=== PATIENT | female | born 1945 | race Two or more races ===

== ENCOUNTER 2017-12-30 12:06 | Emergency (ER) | payer MEDICARE, MEDICAID ==
[~2017-12-30] VITALS: Ht 160 cm; Wt 99.8 kg
[~2017-12-30 12:06] MED LIST: ALBU18HF2 INH; ASPI-611 PO; CEPH500C5 PO; CETI10TA18 PO; GABA600T2 PO; HUM7525 SQ; HYDR-3972 PO; LANTUS SUBCUT; LEVO150T8 PO; LISI10TA4 PO
[2017-12-30 13:18] LABS: CLARITY,URINE Clear (Clear); COLOR,URINE Yellow (Yellow); GLUCOSE, URINE Negative (Neg); KETONES,URINE Negative (Neg); LEUKOCYTE ESTERASE ,URINE Trace (Neg); NITRITES, URINE Positive (Neg); OCCULT BLOOD,URINE Trace (Neg); PH,URINE 7.5 (4.8-8.0); PROTEIN,URINE Negative (Neg)
[2017-12-30 13:22] LABS: UA COLLECTION TYPE CLN CATCH MIDSTREAM
[2017-12-30] MEDS ORDERED: BACDS PO (13:35)
[2017-12-30 13:43] LABS: BACTERIA,URINE 2+ /HPF (Neg); MUCUS STRANDS FEW /LPF (Neg); SQUAMOUS EPITHELIAL CELL,UR FEW /LPF (FEW)
[2017-12-30 13:44] LABS: RBC,URINE 0-2 /HPF (0-2)
[2017-12-30 13:50] VITALS: BP 139/70
== END 2017-12-30 13:53 | disposition home or self-care (01) ==
LOC: ER 12:07
DX: N39.0 Urinary tract infection, site not specified (principal); E11.9 Type 2 diabetes mellitus without complications; G89.29 Other chronic pain; M19.90 Unspecified osteoarthritis, unspecified site; Z79.82 Long term (current) use of aspirin; Z79.899 Other long term (current) drug therapy
CPT/HCPCS: 81001; 87077; 87088; 87186; 99284

== ENCOUNTER 2018-02-02 06:09 | Inpatient (IN) | payer MEDICARE, MEDICAID ==
[2018-01-20 14:15] LABS: BASOPHILS % (AUTO) 0.3 % (0-1); EOSINOPHILS # (AUTO) 0.1 X10'3 (0-0.9); EOSINOPHILS % (AUTO) 0.7 % (0-6); LYMPHOCYTES % (AUTO) 28.1 % (21-51); MEAN CORPUSCULAR HEMOGLOBIN 35.7 PG (27.0-31.0); MEAN CORPUSCULAR VOLUME 104.8 FL (78-98); MEAN PLATELET VOLUME 9.5 FL (7.4-10.4); MONOCYTES # (AUTO) 0.6 X10'3 (0-0.9); MONOCYTES % (AUTO) 8.9 % (2-12); NEUTROPHILS # (AUTO) 4.4 X10'3 (1.8-7.7); PRE OP HEMATOCRIT 38.2 % (35.0-45.0); PRE OP PLATELET COUNT 138 X10'3 (140-440); RED BLOOD COUNT 3.65 X10'6 (4.20-5.60); RED CELL DISTRIBUTION WIDTH 16.4 % (11.5-14.5)
[2018-01-20 14:25] LABS: HEMOGLOBIN A1C 7.3 % (4.5-6.2)
[2018-01-20 14:31] LABS: ALBUMIN 3.1 G/DL (3.4-5.0); ALBUMIN/GLOBULIN RATIO 0.8 (1.1-1.5); ALKALINE PHOSPHATASE 246 IU/L (46-116); BLOOD UREA NITROGEN 9 MG/DL (7-18); CALCIUM 8.6 MG/DL (8.5-10.1); CHLORIDE 103 MMOL/L (99-107); CREATININE 0.82 MG/DL (0.40-0.90); PRE OP ALT 56 U/L (30-65); PRE OP ANION GAP 4 (8-16); PRE OP AST 37 U/L (10-37); PRE OP BILIRUB, TOTAL 0.8 MG/DL (0.0-1.0); PRE OP POTASSIUM 4.3 MMOL/L (3.4-5.1); PRE OP SODIUM 138 MMOL/L (135-145); TOTAL CARBON DIOXIDE 31.4 MMOL/L (24-32); TOTAL PROTEIN 7.2 G/DL (6.4-8.2); eGFR 69 ML/MIN
[2018-01-20 14:32] LABS: PRE OP GLUCOSE 239 MG/DL (70-104)
[~2018-02-02] VITALS: Ht 160 cm; Wt 114.3 kg
[2018-02-02] VITALS (20 sets, daily range): BP systolic 96–163; BP diastolic 51–84
[~2018-02-02 06:09] MED LIST changes: -ASPI-611 PO; -CEPH500C5 PO; +DULO30CA51 PO; +NORMAL SALINE IV ONE; +TRANEXAMIC ACID IV ONE; +VANCOMYCIN INJ 1000 MG in NORMAL SALINE 250ml IV.SOLN IV ONE; +ceFAZolin inj. 2,000 MG in dextrose 5%-water 100 ML IV ONE; +famotidine 20mg tablet PO ONE; +ringers solution, lacted 1,000 ML IV SCH
[2018-02-02] MEDS ORDERED: LIDOcaine 1% (10mg/ml) 2ml vial ONE ×2 (06:31→08:11)
[2018-02-02] MEDS ORDERED: ketorolac trometh. 30mg/ml inj. ONE (06:46)
[2018-02-02] MEDS ORDERED: BUPIVAcaine/PF 2.5 mg/ml (0.25%) 30ml vial ONE (06:47)
[2018-02-02] MEDS ORDERED: vancomycin 1,000mg inj ONE (06:52)
[2018-02-02] MEDS ORDERED: TRANEXAMIC ACID IV ONE (07:30)
[2018-02-02] MEDS ORDERED: NORMAL SALINE IV ONE (07:30)
[2018-02-02] MEDS ORDERED: cloNIDine hcl/PF 100mcg/ml inj ONE (09:02)
[2018-02-02] MEDS ORDERED: tetracaine 1% (10mg/ml) pres. free inj. ONE (09:02)
[2018-02-02] MEDS ORDERED: MIDAZolam 5mg/5ml vial ONE (09:05)
[2018-02-02] MEDS ORDERED: fentaNYL/PF 50MCG/1 ML 2ML syringe ONE (09:05)
[2018-02-02] MEDS ORDERED: morphine /PF 1mg/ml 10ml inj. ONE (09:19)
[2018-02-02] MEDS ORDERED: propofol inj 20 ML IV ONE ×2 (09:45→11:32)
[2018-02-02] MEDS ORDERED: diphenhydrAMINE 50 mg/ml inj ONE (09:45)
[2018-02-02] MEDS ORDERED: LIDOcaine 1%/PF (10mg/ml) 5ml vial ONE (09:45)
[2018-02-02] MEDS ORDERED: dexamethasone sod phosphate 4mg/ml inj. ONE (09:51)
[2018-02-02] MEDS ORDERED: ROPIVAcaine 0.5% (5mg/ml) 30ml vial ONE (09:53)
[2018-02-02] MEDS ORDERED: naloxone 2mg/2ml inj 2 MG in normal saline 500ml IV soln 500 ML IV PRN (10:33)
[2018-02-02] MEDS ORDERED: ringers solution, lacted 1,000 ML IV SCH (10:33)
[2018-02-02] MEDS ORDERED: morphine 4 MG/ML inj SYRINge IV PRN (10:35)
[2018-02-02] MEDS ORDERED: diphenhydrAMINE 50 mg/ml inj IV PRN (10:35)
[2018-02-02] MEDS ORDERED: ondansetron/PF 4mg/2ml inj IV PRN ×3 (10:35→12:15)
[2018-02-02] MEDS ORDERED: HYDROmorphone inj. 0.5 MG/0.5 ML DISP.SYRIN IV PRN ×4 (10:35→12:15)
[2018-02-02] MEDS ORDERED: diphenhydrAMINE 25mg capsule PO PRN ×2 (12:15)
[2018-02-02] MEDS ORDERED: bisacodyl 10mg suppository rectal RC PRN (12:15)
[2018-02-02] MEDS ORDERED: magnesium hydroxide 30ml (MOM) UD suspension PO PRN (12:15)
[2018-02-02] MEDS ORDERED: acetaminophen 325mg tablet PO PRN (12:15)
[2018-02-02] MEDS ORDERED: dextrose 50%-water 50ml dispensing syringe IV ONE (13:05)
[2018-02-02] MEDS: acetaminophen 325mg tablet PO SCH ×2 (14:17→20:11)
[2018-02-02] MEDS: gabapentin 300mg capsule PO SCH ×2 (14:17→20:11)
[2018-02-02] MEDS ORDERED: tranexamic acid inj. 1,200 MG in normal saline 100ml IV soln 100 ML IV ONE (15:00)
[2018-02-02] MEDS: ceFAZolin inj. 1,000 MG in normal saline 100ml IV soln 100 ML IV SCH ×2 (16:52→23:40)
[2018-02-02] MEDS: potassium cl 20mEq in 1/2 NS 1,000 ML IV SCH (16:52)
[2018-02-02] MEDS ORDERED: non-formulary drug (Albuterol Sulfate (Ventolin Hfa) 2 PUFFS) INH SCH (17:20)
[2018-02-02] MEDS ORDERED: albuterol 2.5 MG/3 ML nebule NEB PRN (17:25)
[2018-02-02] MEDS: oxyCODONE IR 5mg (immed. release) tablet PO PRN (17:50)
[2018-02-02] MEDS: insulin glargine (Lantus) pen - multi-dose SQ SCH (18:55)
[2018-02-02] MEDS ORDERED: vancomycin/NS 1 GM ADD-VANTAGE 250 ML IV SCH (19:00)
[2018-02-02] MEDS: sennosides 8.6mg tablet PO SCH (20:10)
[2018-02-02] MEDS: celeCOXIB 100mg capsule PO SCH (20:11)
[2018-02-02] MEDS ORDERED: MESSAGE TO PHARMACY PO ONE (20:55)
[2018-02-02] MEDS ORDERED: dextrose 50%-water 50ml dispensing syringe IV PRN ×2 (20:55)
[2018-02-02] MEDS ORDERED: dextrose ORAL solution 15 GM/59 ML bottle PO PRN ×2 (20:55)
[2018-02-02] MEDS ORDERED: glucagon, human recombinant 1mg kit SUBCUT PRN (20:55)
[2018-02-02] MEDS: insulin Lispro (HumaLOG) vial - multi-dose SQ SCH (21:25)
[2018-02-03] MEDS ORDERED: gabapentin 300mg capsule PO SCH
[2018-02-03] MEDS ORDERED: non-formulary drug (Gabapentin 1 TAB) PO SCH
[2018-02-03] MEDS: oxyCODONE IR 5mg (immed. release) tablet PO PRN ×4 (02:08→21:35)
[2018-02-03] MEDS: acetaminophen 325mg tablet PO SCH ×4 (02:08→21:33)
[2018-02-03] MEDS: potassium cl 20mEq in 1/2 NS 1,000 ML IV SCH ×4 (02:27→21:57)
[2018-02-03 02:31] VITALS: BP 112/56
[2018-02-03 05:56] LABS: BASOPHILS % (AUTO) 0.4 % (0-1); EOSINOPHILS % (AUTO) 0 % (0-6); HEMATOCRIT 31.2 % (35.0-45.0); HEMOGLOBIN 10.9 g/dl (12.0-16.0); LYMPHOCYTES # (AUTO) 1.7 X10'3 (1.1-4.8); LYMPHOCYTES % (AUTO) 19.8 % (21-51); MEAN CORPUSCULAR HEMOGLOBIN 36.6 PG (27.0-31.0); MEAN CORPUSCULAR HGB CONC 34.8 % (33.0-36.5); MEAN PLATELET VOLUME 10.1 FL (7.4-10.4); MONOCYTES # (AUTO) 1.2 X10'3 (0-0.9); NEUTROPHILS # (AUTO) 5.7 X10'3 (1.8-7.7); NEUTROPHILS % (AUTO) 65.8 % (42-75); PLATELET COUNT 124 X10'3 (140-440); RED BLOOD COUNT 2.97 X10'6 (4.20-5.60); RED CELL DISTRIBUTION WIDTH 14.6 % (11.5-14.5); WHITE BLOOD COUNT 8.6 X10'3 (4.5-11.0)
[2018-02-03 06:00] VITALS: BP 92/51
[2018-02-03 06:32] LABS: ANION GAP 3 (8-16); CHLORIDE 105 MMOL/L (99-107); POTASSIUM 4.6 MMOL/L (3.5-5.1); SODIUM 139 MMOL/L (135-145); TOTAL CARBON DIOXIDE 31.4 MMOL/L (24-32)
[2018-02-03] MEDS ORDERED: non-formulary drug (Levothyroxine Sodium 1 TAB) PO SCH (08:00)
[2018-02-03] MEDS ORDERED: non-formulary drug (Cetirizine HCl 1 TAB) PO SCH (08:00)
[2018-02-03] MEDS: insulin glargine (Lantus) pen - multi-dose SQ SCH ×2 (08:35→21:39)
[2018-02-03] MEDS: insulin Lispro (HumaLOG) vial - multi-dose SQ SCH ×2 (08:39→14:51)
[2018-02-03] MEDS: cetirizine 10mg tablet PO SCH (08:41)
[2018-02-03] MEDS: lisinopril 10 MG tablet PO SCH (08:42)
[2018-02-03] MEDS: duloxetine 30mg CAPSULE.DR PO SCH (08:42)
[2018-02-03] MEDS: levoTHYROXINE 75mcg tablet PO SCH (08:42)
[2018-02-03] MEDS: celeCOXIB 100mg capsule PO SCH ×2 (08:43→21:33)
[2018-02-03] MEDS: aspirin 325mg tablet PO SCH (08:43)
[2018-02-03] MEDS: gabapentin 300mg capsule PO SCH ×3 (08:44→21:32)
[2018-02-03 10:00] VITALS: BP 112/58
[2018-02-03 14:00] VITALS: BP 117/62
[2018-02-03 18:00] VITALS: BP 157/67
[2018-02-03] MEDS: sennosides 8.6mg tablet PO SCH (21:00)
[2018-02-03 22:00] VITALS: BP 114/43
[2018-02-04] MEDS: acetaminophen 325mg tablet PO SCH ×2 (02:00→07:56)
[2018-02-04] MEDS: oxyCODONE IR 5mg (immed. release) tablet PO PRN ×3 (05:38→20:32)
[2018-02-04 06:00] VITALS: BP 117/48
[2018-02-04 06:06] LABS: BASOPHILS % (AUTO) 0.3 % (0-1); EOSINOPHILS # (AUTO) 0.1 X10'3 (0-0.9); EOSINOPHILS % (AUTO) 1.4 % (0-6); HEMATOCRIT 31.4 % (35.0-45.0); HEMOGLOBIN 10.9 g/dl (12.0-16.0); LYMPHOCYTES # (AUTO) 2.7 X10'3 (1.1-4.8); MEAN CORPUSCULAR HEMOGLOBIN 36.6 PG (27.0-31.0); MEAN CORPUSCULAR HGB CONC 34.6 % (33.0-36.5); MEAN CORPUSCULAR VOLUME 105.5 FL (78-98); MEAN PLATELET VOLUME 10.4 FL (7.4-10.4); MONOCYTES # (AUTO) 1.4 X10'3 (0-0.9); MONOCYTES % (AUTO) 14.2 % (2-12); NEUTROPHILS # (AUTO) 5.5 X10'3 (1.8-7.7); NEUTROPHILS % (AUTO) 56.1 % (42-75); PLATELET COUNT 120 X10'3 (140-440); RED BLOOD COUNT 2.98 X10'6 (4.20-5.60); RED CELL DISTRIBUTION WIDTH 15.4 % (11.5-14.5); WHITE BLOOD COUNT 9.8 X10'3 (4.5-11.0)
[2018-02-04] MEDS: celeCOXIB 100mg capsule PO SCH ×2 (07:55→20:32)
[2018-02-04] MEDS: gabapentin 300mg capsule PO SCH ×3 (07:55→20:32)
[2018-02-04] MEDS: cetirizine 10mg tablet PO SCH (07:55)
[2018-02-04] MEDS: levoTHYROXINE 75mcg tablet PO SCH (07:55)
[2018-02-04] MEDS: aspirin 325mg tablet PO SCH (07:55)
[2018-02-04] MEDS: lisinopril 10 MG tablet PO SCH (07:56)
[2018-02-04] MEDS: duloxetine 30mg CAPSULE.DR PO SCH (07:56)
[2018-02-04] MEDS: insulin glargine (Lantus) pen - multi-dose SQ SCH ×2 (09:28→20:36)
[2018-02-04 10:00] VITALS: BP 114/63
[2018-02-04] MEDS: insulin Lispro (HumaLOG) vial - multi-dose SQ SCH ×3 (11:32→19:25)
[2018-02-04] MEDS ORDERED: acetaminophen 325mg tablet PO PRN (12:15)
[2018-02-04 18:00] VITALS: BP 110/51
[2018-02-04] MEDS: sennosides 8.6mg tablet PO SCH (20:46)
[2018-02-04 22:00] VITALS: BP 110/61
[2018-02-05] MEDS: oxyCODONE IR 5mg (immed. release) tablet PO PRN ×2 (04:49→09:48)
[2018-02-05 06:00] VITALS: BP 125/55
[2018-02-05 06:43] LABS: BASOPHILS % (AUTO) 0.2 % (0-1); EOSINOPHILS # (AUTO) 0.2 X10'3 (0-0.9); EOSINOPHILS % (AUTO) 1.8 % (0-6); HEMATOCRIT 32.3 % (35.0-45.0); HEMOGLOBIN 11.2 g/dl (12.0-16.0); LYMPHOCYTES # (AUTO) 2.9 X10'3 (1.1-4.8); LYMPHOCYTES % (AUTO) 31.9 % (21-51); MEAN CORPUSCULAR HEMOGLOBIN 36.4 PG (27.0-31.0); MEAN CORPUSCULAR HGB CONC 34.7 % (33.0-36.5); MEAN CORPUSCULAR VOLUME 104.9 FL (78-98); MEAN PLATELET VOLUME 9.9 FL (7.4-10.4); MONOCYTES # (AUTO) 1.1 X10'3 (0-0.9); MONOCYTES % (AUTO) 12.1 % (2-12); NEUTROPHILS # (AUTO) 4.9 X10'3 (1.8-7.7); PLATELET COUNT 137 X10'3 (140-440); RED BLOOD COUNT 3.08 X10'6 (4.20-5.60); RED CELL DISTRIBUTION WIDTH 15.5 % (11.5-14.5); WHITE BLOOD COUNT 9.1 X10'3 (4.5-11.0)
[2018-02-05] MEDS: aspirin 325mg tablet PO SCH (08:07)
[2018-02-05] MEDS: levoTHYROXINE 75mcg tablet PO SCH (08:07)
[2018-02-05] MEDS: celeCOXIB 100mg capsule PO SCH (08:07)
[2018-02-05] MEDS: duloxetine 30mg CAPSULE.DR PO SCH (08:07)
[2018-02-05] MEDS: cetirizine 10mg tablet PO SCH (08:07)
[2018-02-05] MEDS: gabapentin 300mg capsule PO SCH (08:07)
[2018-02-05] MEDS: lisinopril 10 MG tablet PO SCH (08:08)
[2018-02-05] MEDS: insulin glargine (Lantus) pen - multi-dose SQ SCH (09:52)
[2018-02-05 10:00] VITALS: BP 116/57
[2018-02-05] MEDS: insulin Lispro (HumaLOG) vial - multi-dose SQ SCH (11:27)
== END 2018-02-05 12:35 | DRG 470 ==
LOC: PAS IN 06:09 → EDSTATUS 09:00 → ORTHO 4S 13:40
PROVIDERS: ADMIT Orthopaedic Surgery; ATTEND Orthopaedic Surgery
PROC: 3E0T3BZ Introduction of Anesthetic Agent into Peripheral Nerves and Plexi, Percutaneous Approach (ICD-10-PCS; 2018-02-02)
PROC: 8E0YXBZ Computer Assisted Procedure of Lower Extremity (ICD-10-PCS; 2018-02-02)
PROC: 8E0YXCZ Robotic Assisted Procedure of Lower Extremity (ICD-10-PCS; 2018-02-02)
PROC: 0SRD0J9 Replacement of Left Knee Joint with Synthetic Substitute, Cemented, Open Approach (ICD-10-PCS; principal; 2018-02-02 09:08)
DX: M17.12 Unilateral primary osteoarthritis, left knee (principal); D62 Acute posthemorrhagic anemia; E11.9 Type 2 diabetes mellitus without complications; Z68.41 Body mass index [BMI] 40.0-44.9, adult; G47.30 Sleep apnea, unspecified; M25.262 Flail joint, left knee; E03.9 Hypothyroidism, unspecified; I10 Essential (primary) hypertension; K21.9 Gastro-esophageal reflux disease without esophagitis; G89.29 Other chronic pain; M54.9 Dorsalgia, unspecified; F32.9 Major depressive disorder, single episode, unspecified; E66.9 Obesity, unspecified; Z79.899 Other long term (current) drug therapy; Z79.4 Long term (current) use of insulin
CPT/HCPCS: 36415; 80051; 80053; 82948; 83036; 85025; 87070; 94760; 97110; 97116; 97162; 97530; A6455; A7000; C1713; C1758; C1776; J0690; J0735; J1100; J1170; J1200; J1815; J1885; J2001; J2250; J2274; J2704; J2795; J3010; J3370; J3490; J7030; J7060; J7120; Q0163

== ENCOUNTER 2018-04-09 11:15 | Emergency (ER) | payer MEDICARE, MEDICAID ==
[~2018-04-09] VITALS: Ht 160 cm; Wt 100.2 kg
[~2018-04-09 11:15] MED LIST changes: -NORMAL SALINE IV ONE; -TRANEXAMIC ACID IV ONE; -VANCOMYCIN INJ 1000 MG in NORMAL SALINE 250ml IV.SOLN IV ONE; -ceFAZolin inj. 2,000 MG in dextrose 5%-water 100 ML IV ONE; -famotidine 20mg tablet PO ONE; -ringers solution, lacted 1,000 ML IV SCH
[2018-04-09] MEDS ORDERED: ketorolac trometh inj. 60 MG/2 ML VIAL IM STA (11:47)
[2018-04-09] MEDS ORDERED: ketorolac trometh. 30mg/ml inj. IM STA (11:50)
[2018-04-09 12:14] VITALS: BP 129/85
== END 2018-04-09 12:15 | disposition home or self-care (01) ==
LOC: ER 11:15
DX: M25.552 Pain in left hip (principal); E11.9 Type 2 diabetes mellitus without complications; G89.29 Other chronic pain; M19.90 Unspecified osteoarthritis, unspecified site; Z79.4 Long term (current) use of insulin; Z79.899 Other long term (current) drug therapy
CPT/HCPCS: 96372; 99283; J1885

== ENCOUNTER 2022-01-17 10:38 | Day surgery (SDC) | payer OTHER, MEDICAID ==
[~2022-01-17] VITALS: Ht 165.1 cm; Wt 122.5 kg
[~2022-01-17 10:38] MED LIST changes: +ACET-2119 PO; -ALBU18HF2 INH; +AMIO200T61 PO; +BISA10SU60 RC; +CELE-193 PO; -CETI10TA18 PO; +CETI10TA19 PO; +DULO-31 PO; -DULO30CA51 PO; +FERR325T32 PO; -GABA600T2 PO; -HUM7525 SQ; -HYDR-3972 PO; +INSU100I31 SQ; +INSU100V43 SQ; -LANTUS SUBCUT; -LEVO150T8 PO; +LEVO75TA PO; +LISI10TA27 PO; -LISI10TA4 PO; +MAGN400O6 PO; +MULT-620 PO; +RIVA20TA PO; +SULF1TAB49 PO; +TRAM50TA2 PO
[2022-01-17 10:55] VITALS: BP 177/53
[2022-01-17] MEDS ORDERED: normal saline 1000ml 1,000 ML IV PRN (11:05)
[2022-01-17] MEDS ORDERED: MEMA10TA56 PO (11:53)
[2022-01-17] MEDS ORDERED: ASPI-1265 PO (11:53)
[2022-01-17] MEDS ORDERED: ALBU17AE26 (11:53)
[2022-01-17] MEDS ORDERED: ESCI20TA39 PO (11:53)
[2022-01-17] MEDS ORDERED: MOME45CR3 (11:53)
[2022-01-17] MEDS ORDERED: LEVO175T7 PO (11:53)
[2022-01-17] MEDS ORDERED: GABA600T13 PO (11:53)
[2022-01-17] MEDS ORDERED: ATRNS BOTHNARES (11:53)
[2022-01-17] MEDS ORDERED: DICL100G30 TOP (11:53)
[2022-01-17] MEDS ORDERED: HYDR-3972 PO (11:53)
[2022-01-17] MEDS ORDERED: FURO-149 PO (11:54)
[2022-01-17] MEDS ORDERED: POTA-192 PO (11:55)
[2022-01-17] MEDS ORDERED: THIA100T70 PO (11:56)
[2022-01-17] MEDS ORDERED: heparin sodium, porcine/PF 100unit/ml 5ML syringe ONE (13:31)
[2022-01-17] MEDS ORDERED: LIDOcaine 1% (10mg/ml)w/preservative inj. 20ml MDV ONE ×2 (13:31→14:59)
[2022-01-17] MEDS ORDERED: midazolam 1 mg/ML 2ml injection ONE ×2 (13:31→15:12)
[2022-01-17] MEDS ORDERED: fentaNYL/PF 50MCG/1 ML 2ML syringe ONE ×2 (13:31→14:59)
[2022-01-17 15:51] VITALS: BP 137/50
[2022-01-17 16:00] VITALS: BP 129/70
[2022-01-17 16:15] VITALS: BP 129/75
[2022-01-17 16:30] VITALS: BP 116/56
[2022-01-17 16:45] VITALS: BP 104/52
== END 2022-01-17 17:00 | disposition home or self-care (01) ==
LOC: SSTAY O 10:38
PROVIDERS: ATTEND Radiology Vascular & Interventional Radiology
DX: C22.0 Liver cell carcinoma (principal); K74.60 Unspecified cirrhosis of liver; E66.9 Obesity, unspecified; Z68.41 Body mass index [BMI] 40.0-44.9, adult; Z79.899 Other long term (current) drug therapy; Z79.82 Long term (current) use of aspirin
CPT/HCPCS: 36561; 76937; 77001; 82948; 99152; 99153; C1769; C1788; C1894; J1642; J2250; J3010; J3490

== ENCOUNTER 2022-05-06 11:46 | Inpatient (IN) | payer OTHER, MEDICAID ==
[~2022-05-06] VITALS: Ht 162.6 cm; Wt 107.8 kg
[~2022-05-06 11:46] MED LIST changes: -ACET-2119 PO; +ALBU17AE26; -AMIO200T61 PO; +ASPI-1265 PO; +ATRNS BOTHNARES; -BISA10SU60 RC; -CELE-193 PO; -CETI10TA19 PO; +DICL100G30 TOP; -DULO-31 PO; +ESCI20TA39 PO; +FURO-149 PO; +GABA600T13 PO; +HYDR-3972 PO; +LEVO175T7 PO; -LEVO75TA PO; -LISI10TA27 PO; -MAGN400O6 PO; +MEMA10TA56 PO; +MOME45CR3 TP; -MULT-620 PO; +POTA-192 PO; -RIVA20TA PO; -SULF1TAB49 PO; +THIA100T70 PO; -TRAM50TA2 PO; +lactulose 20gm/30ml cup PO ONE
--- NOTE | 2022-05-06 15:29 | NUR ---
RECORDS REQUEST FAXED TO [facility].
[2022-05-06 16:38] LABS: BASOPHILS % (AUTO) 1.1 % (0-1); EOSINOPHILS # (AUTO) 0.4 X10'3 (0-0.9); EOSINOPHILS % (AUTO) 9.2 % (0-6); HEMATOCRIT 38.5 % (35.0-45.0); HEMOGLOBIN 13.3 g/dl (12.0-16.0); LYMPHOCYTES # (AUTO) 1.9 X10'3 (1.1-4.8); LYMPHOCYTES % (AUTO) 44.9 % (21-51); MEAN CORPUSCULAR HGB CONC 34.4 g/dL (33.0-36.5); MEAN CORPUSCULAR VOLUME 104.6 FL (78-98); MEAN PLATELET VOLUME 9.2 FL (7.4-10.4); MONOCYTES # (AUTO) 0.5 X10'3 (0-0.9); MONOCYTES % (AUTO) 11.9 % (2-12); NEUTROPHILS # (AUTO) 1.4 X10'3 (1.8-7.7); NEUTROPHILS % (AUTO) 32.9 % (42-75); PLATELET COUNT 82 X10'3 (140-440); RED BLOOD COUNT 3.68 X10'6 (4.20-5.60); RED CELL DISTRIBUTION WIDTH 17.8 % (11.5-14.5); WHITE BLOOD COUNT 4.2 X10'3 (4.5-11.0)
[2022-05-06 16:57] LABS: LACTIC SEPSIS 1.9 MMOL/L (0.4-2.0)
[2022-05-06 17:07] LABS: ALANINE AMINOTRANSFERASE 76 U/L (12-78); ALBUMIN/GLOBULIN RATIO 0.4 (1.1-1.5); ALKALINE PHOSPHATASE 222 IU/L (46-116); ANION GAP 4 (8-16); ASPARTATE AMINO TRANSFERASE 66 U/L (10-37); BILIRUBIN,TOTAL 3.2 MG/DL (0.1-1.0); BLOOD UREA NITROGEN 10 MG/DL (7-18); BUN/CREATININE RATIO 14.1 (6.6-38.0); CALCIUM 8.2 MG/DL (8.5-10.1); CHLORIDE 103 MMOL/L (99-107); CREATININE 0.71 MG/DL (0.40-0.90); ETHANOL < 0.010 GM/DL (0.0-0.010); GLUCOSE 143 MG/DL (70-104); MAGNESIUM 2.1 MG/DL (1.5-2.4); POTASSIUM 4.3 MMOL/L (3.5-5.1); SODIUM 137 MMOL/L (135-145); TOTAL PROTEIN 7.6 G/DL (6.4-8.2); eGFR 80 ML/MIN
[2022-05-06 17:13] LABS: UA COLLECTION TYPE OTHER
[2022-05-06 17:14] LABS: CLARITY,URINE CLOUDY (Clear); COLOR,URINE YELLOW (Yellow); GLUCOSE, URINE NEGATIVE (Neg); KETONES,URINE TRACE mg/dl (Neg); LEUKOCYTE ESTERASE ,URINE MODERATE (Neg); NITRITES, URINE POSITIVE (Neg); OCCULT BLOOD,URINE LARGE (Neg); PH,URINE 6.5 (4.8-8.0); PROTEIN,URINE TRACE mg/dl (Neg); UROBILINOGEN,URINE >=8.0 E.U/dL (0.2-1.0)
[2022-05-06 17:18] LABS: URINE AMPHETAMINE SCREEN NEGATIVE (Neg); URINE BARBITUATE SCREEN NEGATIVE (Neg); URINE BENZODIAZEPINES SCREEN NEGATIVE (Neg); URINE CANNABINOID SCREEN NEGATIVE (Neg); URINE COCAINE SCREEN NEGATIVE (Neg); URINE METHADONE SCREEN NEGATIVE (Neg); URINE OPIATE SCREEN POSITIVE (Neg); URINE PHENCYCLIDINE SCREEN NEGATIVE (Neg)
[2022-05-06 17:20] LABS: BACTERIA,URINE 2+ /HPF (Neg); SQUAMOUS EPITHELIAL CELL,UR MODERATE /LPF (FEW); TRANSITIONAL EPI CELLS,URINE MODERATE /HPF; WBC CLUMPS,URINE MODERATE /HPF (NEGATIVE); WBC,URINE 20-30 /HPF (0-4)
[2022-05-06] MEDS ORDERED: cefepime 2g/NS 100ml ADVANTAGE 100 ML IV SCH (20:00)
[2022-05-06] MEDS ORDERED: temazepam 15mg capsule PO PRN (21:00)
--- NOTE | 2022-05-06 21:04 | NUR ---
CALLED TO REPORT 196/102 BP. NEW ORDERS EXPECTEDD
[2022-05-06] MEDS ORDERED: niCARdipine I.V. 50 MG in normal saline 250ml IV soln 230 ML IV SCH (21:10)
[2022-05-06] MEDS ORDERED: HYDROmorphone inj. 0.5 MG/0.5 ML DISP.SYRIN IV PRN (21:30)
[2022-05-06] MEDS ORDERED: diphenhydrAMINE 25mg capsule PO PRN (21:30)
[2022-05-06] MEDS ORDERED: acetaminophen 325mg tablet PO PRN ×2 (21:30)
[2022-05-06] MEDS ORDERED: magnesium hydroxide 30ml (MOM) UD suspension PO PRN (21:30)
[2022-05-06] MEDS ORDERED: ondansetron 4mg rapidly disintigrating tab PO PRN (21:30)
[2022-05-06] MEDS ORDERED: bisacodyl 10mg suppository rectal RC PRN (21:30)
[2022-05-06] MEDS ORDERED: ondansetron/PF 4mg/2ml inj IV PRN (21:30)
[2022-05-06] MEDS ORDERED: mag hydrox/Alum hydrox/simeth 30ml oral suspension PO PRN (21:30)
[2022-05-06] MEDS ORDERED: HYDROcodone/acetaminophen 5mg/325mg tablet PO PRN (21:30)
[2022-05-06] MEDS ORDERED: acetaminophen 650mg rectal suppository RC PRN (21:30)
[2022-05-06] MEDS ORDERED: diphenhydrAMINE 50 mg/ml inj IV PRN (21:30)
[2022-05-06] MEDS ORDERED: morphine 2 MG/ML inj. syringe IV PRN (21:30)
[2022-05-06] MEDS ORDERED: DEXTROSE 15 GM of carb/4 tabs (each vial/BOTTLE has 4 tablets) PO PRN ×2 (21:35)
[2022-05-06] MEDS ORDERED: MESSAGE TO PHARMACY PO ONE (21:35)
[2022-05-06] MEDS ORDERED: dextrose 50%-water 50ml dispensing syringe IV PRN ×2 (21:35)
[2022-05-06] MEDS ORDERED: glucagon, human recombinant 1mg kit SUBCUT PRN (21:35)
--- NOTE | 2022-05-06 21:48 | NUR ---
PT TO CT
[2022-05-06 21:55] LABS: PHOSPHORUS 4.1 MG/DL (2.3-4.5)
[2022-05-06] MEDS: normal saline 1000ml 1,000 ML IV SCH (22:14)
[2022-05-06] MEDS: niCARDipine-NS 40mg/200ml IVPB 200 ML IV SCH (22:15)
[2022-05-06 23:58] LABS: APTT 42 SECONDS (22-32)
[2022-05-07] VITALS (7 sets, daily range): BP systolic 116–150; BP diastolic 57–84
[2022-05-07] MEDS: lactulose 20gm/30ml cup PO SCH ×4 (03:02→20:24)
[2022-05-07] MEDS: niCARDipine-NS 40mg/200ml IVPB 200 ML IV SCH (05:15)
[2022-05-07 06:04] LABS: EOSINOPHILS # (AUTO) 0.2 X10'3 (0-0.9); EOSINOPHILS % (AUTO) 3.7 % (0-6); HEMATOCRIT 38.1 % (35.0-45.0); HEMOGLOBIN 13.3 g/dl (12.0-16.0); LYMPHOCYTES # (AUTO) 1.3 X10'3 (1.1-4.8); LYMPHOCYTES % (AUTO) 29.6 % (21-51); MEAN CORPUSCULAR HEMOGLOBIN 36.5 PG (27.0-31.0); MEAN CORPUSCULAR VOLUME 104.3 FL (78-98); MEAN PLATELET VOLUME 9.4 FL (7.4-10.4); MONOCYTES # (AUTO) 0.5 X10'3 (0-0.9); MONOCYTES % (AUTO) 11.8 % (2-12); NEUTROPHILS # (AUTO) 2.5 X10'3 (1.8-7.7); NEUTROPHILS % (AUTO) 53.9 % (42-75); PLATELET COUNT 93 X10'3 (140-440); RED BLOOD COUNT 3.66 X10'6 (4.20-5.60); RED CELL DISTRIBUTION WIDTH 17.7 % (11.5-14.5); WHITE BLOOD COUNT 4.6 X10'3 (4.5-11.0)
[2022-05-07 06:20] LABS: ALANINE AMINOTRANSFERASE 72 U/L (12-78); ALBUMIN 2.1 G/DL (3.4-5.0); ALKALINE PHOSPHATASE 211 IU/L (46-116); ANION GAP 7 (8-16); ASPARTATE AMINO TRANSFERASE 72 U/L (10-37); BILIRUBIN,TOTAL 3.8 MG/DL (0.1-1.0); BLOOD UREA NITROGEN 14 MG/DL (7-18); BUN/CREATININE RATIO 15.7 (6.6-38.0); CALCIUM 8.4 MG/DL (8.5-10.1); CHLORIDE 103 MMOL/L (99-107); CREATININE 0.89 MG/DL (0.40-0.90); GLUCOSE 162 MG/DL (70-104); HDL CHOLESTEROL 27 MG/DL (35-60); LDL CHOLESTEROL 66 MG/DL (50-100); POTASSIUM 4.3 MMOL/L (3.5-5.1); SODIUM 137 MMOL/L (135-145); TOTAL CARBON DIOXIDE 27.5 MMOL/L (24-32); eGFR 62 ML/MIN
[2022-05-07 06:22] LABS: ALBUMIN/GLOBULIN RATIO 0.4 (1.1-1.5); CHOL/HDL RATIO 4.4 (0.00-4.99); CHOLESTEROL 119 MG/DL (0-200); TOTAL PROTEIN 8.1 G/DL (6.4-8.2); TRIGLYCERIDES 76 MG/DL (20-135)
[2022-05-07] MEDS ORDERED: pantoprazole 40mg Tablet.DR PO SCH (07:30)
[2022-05-07] MEDS ORDERED: furosemide 20 MG/2 ML vial IV SCH (08:00)
[2022-05-07] MEDS: RIFAXIMIN 200 MG PO SCH ×3 (08:00→20:22)
[2022-05-07] MEDS ORDERED: potassium CL 10mEq/100ml bag 100 ML IV PRN (08:35)
[2022-05-07] MEDS ORDERED: magnesium 4gm in 100ml NS 100 ML IV PRN (08:35)
[2022-05-07] MEDS ORDERED: magnesium Cl slow-release 64mg tablet PO PRN (08:35)
[2022-05-07] MEDS: HYDROcodone/acetaminophen 10/325mg tab PO PRN ×3 (10:02→20:16)
[2022-05-07] MEDS: pantoprazole 40mg Tablet.DR PO SCH (10:02)
[2022-05-07] MEDS: docusate sod 100mg capsule PO SCH ×2 (10:02→20:17)
[2022-05-07] MEDS: normal saline 1000ml 1,000 ML IV SCH ×2 (10:06→22:40)
[2022-05-07] MEDS: CefTRIAXone 2gm/D5W 50ml BAG 50 ML IV SCH (12:46)
--- NOTE | 2022-05-07 15:33 | NUR ---
PRESSURE ULCER EDUCATION: DEFINITION: A pressure ulcer is an area of skin that breaks down when you stay in one position too long. The constant pressure against the skin reduces the blood flow to that area and the affected tissue dies. CAUSES: "Being bedridden or in a wheelchair "Fragile skin "Having a chronic condition, such as diabetes or vascular disease "Inability to move certain parts of your body without assistance "Older age "Incontinence of urine or stool SYMPTOMS: "A reddened area that DOES NOT turn white when pressed on - this can be the beginning of a pressure ulcer "A blister, deep sore or a crater - these can be advanced pressure ulcers FIRST AID: "Relieve the pressure on this area "Keep the area clean and dry "Call your primary doctor if you see any of the above symptoms "DO NOT massage the area "DO NOT use a donut shaped or ring shaped pillow- these actually interfere with the blood flow and cause complications PREVENTION: "Check for pressure ulcers everyday "Change position at least every two hours to relieve pressure "Use items that help relieve pressure- pillows, sheepskin, foam padding, and powders. "Keep skin clean and dry "Eat healthy well balanced meals "Exercise daily IF YOU SEE ANY OF THESE SYMPTOMS WHILE IN THE HOSPITAL - TELL YOUR NURSE IMMEDIATELY. IF YOU SEE ANY OF THESE SYMPTOMS WHILE AT HOME OR HAVE ANY QUESTIONS OR CONCERNS ABOUT PRESSURE ULCERS - CALL YOUR PRIMARY DOCTOR IMMEDIATELY. Addendum: 05/07/22 at 1533 by Gin Kunz LVN Amended: Links added.
[2022-05-07] MEDS ORDERED: LACT10SO3 PO (16:02)
[2022-05-07] MEDS ORDERED: LISI10TA27 PO (16:02)
[2022-05-07] MEDS ORDERED: LIRA0.6P2 SQ (16:02)
[2022-05-07] MEDS ORDERED: DULO60CA65 PO (16:02)
[2022-05-07] MEDS: vancomycin/NS 1 GM ADD-VANTAGE 250 ML IV SCH (16:03)
[2022-05-07] MEDS: K and/or MAG REPLACEMENT MC SCH (19:59)
[2022-05-07] MEDS: furosemide 20 MG/2 ML vial IV SCH (20:10)
[2022-05-07] MEDS ORDERED: lactulose 20gm/30ml cup ONE (20:22)
--- NOTE | 2022-05-07 21:00 | NUR ---
did not get report as i came in late, when checked lab saw that a1c was 6.0, with other pt's needing my attention, the 2100 bg check slipped by me by time i realized it, the time was 0400. pt had a 0200 med and was "acting" and alert and oriented as she was in the time i spent with her Addendum: 05/08/22 at 0440 by Juan Luis Thacker LVN Amended: Links added.
[2022-05-08 02:00] VITALS: BP 130/68
[2022-05-08] MEDS ORDERED: lactulose 20gm/30ml cup ONE ×2 (02:01→10:21)
[2022-05-08] MEDS: lactulose 20gm/30ml cup PO SCH ×4 (02:08→20:11)
[2022-05-08] MEDS: HYDROcodone/acetaminophen 10/325mg tab PO PRN (02:09)
[2022-05-08] MEDS ORDERED: VANCOMYCIN LEVEL IV ONE (03:30)
[2022-05-08] MEDS: vancomycin/NS 1 GM ADD-VANTAGE 250 ML IV SCH ×2 (03:52→16:06)
[2022-05-08 05:04] LABS: ALANINE AMINOTRANSFERASE 68 U/L (12-78); ALBUMIN 1.8 G/DL (3.4-5.0); ALBUMIN/GLOBULIN RATIO 0.4 (1.1-1.5); ALKALINE PHOSPHATASE 177 IU/L (46-116); ANION GAP 7 (8-16); ASPARTATE AMINO TRANSFERASE 69 U/L (10-37); BILIRUBIN,TOTAL 3.4 MG/DL (0.1-1.0); BLOOD UREA NITROGEN 14 MG/DL (7-18); BUN/CREATININE RATIO 21.2 (6.6-38.0); CALCIUM 7.8 MG/DL (8.5-10.1); CHLORIDE 104 MMOL/L (99-107); CREATININE 0.66 MG/DL (0.40-0.90); GLUCOSE 142 MG/DL (70-104); MAGNESIUM 1.9 MG/DL (1.5-2.4); PHOSPHORUS 3.6 MG/DL (2.3-4.5); SODIUM 139 MMOL/L (135-145); TOTAL CARBON DIOXIDE 28.4 MMOL/L (24-32); TOTAL PROTEIN 6.9 G/DL (6.4-8.2); eGFR 88 ML/MIN
[2022-05-08 05:08] LABS: POTASSIUM 3.4 MMOL/L (3.5-5.1)
[2022-05-08 06:00] VITALS: BP 115/72
--- NOTE | 2022-05-08 06:19 | NUR ---
Problems reprioritized. Patient report given, questions answered & plan of care reviewed with osorio.
--- NOTE | 2022-05-08 06:56 | NUR ---
Diabetes consult: Noted pt w/ hx of DM A1c 6 well controlled and appropriate. DM ed not indicated at this time. Addendum: 05/08/22 at [address] Amended: Links added.
[2022-05-08 07:21] LABS: BASOPHILS % (AUTO) 0.7 % (0-1); EOSINOPHILS # (AUTO) 0.2 X10'3 (0-0.9); EOSINOPHILS % (AUTO) 4.9 % (0-6); HEMATOCRIT 35.3 % (35.0-45.0); HEMOGLOBIN 12.4 g/dl (12.0-16.0); LYMPHOCYTES # (AUTO) 2.4 X10'3 (1.1-4.8); LYMPHOCYTES % (AUTO) 47.5 % (21-51); MEAN CORPUSCULAR HEMOGLOBIN 36.8 PG (27.0-31.0); MEAN CORPUSCULAR HGB CONC 35.1 g/dL (33.0-36.5); MEAN CORPUSCULAR VOLUME 104.9 FL (78-98); MEAN PLATELET VOLUME 9.2 FL (7.4-10.4); MONOCYTES # (AUTO) 0.6 X10'3 (0-0.9); MONOCYTES % (AUTO) 12.3 % (2-12); NEUTROPHILS # (AUTO) 1.7 X10'3 (1.8-7.7); NEUTROPHILS % (AUTO) 34.6 % (42-75); PLATELET COUNT 84 X10'3 (140-440); RED BLOOD COUNT 3.36 X10'6 (4.20-5.60)
[2022-05-08] MEDS: RIFAXIMIN 200 MG PO SCH ×3 (08:00→20:21)
[2022-05-08] MEDS: docusate sod 100mg capsule PO SCH ×3 (08:00→20:12)
[2022-05-08] MEDS: K and/or MAG REPLACEMENT MC SCH ×2 (08:00→20:11)
--- NOTE | 2022-05-08 09:08 | NUR ---
Assessment for 05/07/2022 Addendum: 05/08/22 at 6778 by Zoe Bond RN Amended: Links added.
[2022-05-08] MEDS: CefTRIAXone 2gm/D5W 50ml BAG 50 ML IV SCH (10:06)
[2022-05-08] MEDS: pantoprazole 40mg Tablet.DR PO SCH (10:07)
[2022-05-08] MEDS: potassium Cl 20 mEq SR tablet PO PRN ×3 (10:08→20:12)
[2022-05-08] MEDS: furosemide 20 MG/2 ML vial IV SCH ×2 (10:08→19:45)
[2022-05-08 11:00] VITALS: BP 128/64
[2022-05-08] MEDS ORDERED: ALBU8.5H17 IH (13:38)
[2022-05-08] MEDS ORDERED: ATOR10TA70 PO (13:38)
[2022-05-08 15:00] VITALS: BP 120/64
[2022-05-08 18:00] VITALS: BP 112/69
[2022-05-08 22:00] VITALS: BP 112/68
[2022-05-08] MEDS ORDERED: ALBUTEROL INHALER 1 PUFF/90 MCG INHALation IH PRN (23:05)
[2022-05-09 02:00] VITALS: BP 99/59
[2022-05-09] MEDS ORDERED: VANCOMYCIN LEVEL IV ONE ×2 (03:30→15:30)
[2022-05-09] MEDS: normal saline 1000ml 1,000 ML IV SCH (04:11)
[2022-05-09] MEDS: vancomycin/NS 1 GM ADD-VANTAGE 250 ML IV SCH ×2 (04:11→17:50)
[2022-05-09] MEDS: lactulose 20gm/30ml cup PO SCH ×4 (04:21→19:49)
--- NOTE | 2022-05-09 04:42 | NUR ---
VANCO TROUGH DUE AT 0330, I POKED PT ONCE BUT SEARCHED FOR VEIN TO NO AVAIL, ANOTHER NURSE TRIED AND GOT A VEIN BUT LOST IT WHEN PT MOVED, ATTEMPT AT NUMBER 2 WAS NOT SUCCESSFUL, CALLED PHARMACY AND WAS TOLD ACCORDING TO CREATINE LEVEL THE PT SHOULD BE FINE WITHOUT THIS VANCO TROUGH, CALLED LAB AND TOLD THEM THAT THEIR LABS THAT WERE WITH THE VANCO WOULD HAVE TO WAIT TILL THEY CAN GET AN "EXPERT" TO POKE THE PT, NOT REMEMBERING HOW TO CANCEL AN ORDER SOMEONE FROM LAB CAME UP AND SHOWED ME HOW TO CANCEL THE VANCO TROUGH ORDER, ONLY OPTION AFTER CANCELING ORDER WAS "NOT NEEDED" BEST OPTION FOR NOW
--- NOTE | 2022-05-09 06:29 | NUR ---
Problems reprioritized. Patient report given, questions answered & plan of care reviewed with AMRITA.
[2022-05-09 06:38] LABS: BASOPHILS % (AUTO) 0.7 % (0-1); EOSINOPHILS # (AUTO) 0.2 X10'3 (0-0.9); EOSINOPHILS % (AUTO) 4.6 % (0-6); HEMOGLOBIN 12.7 g/dl (12.0-16.0); LYMPHOCYTES # (AUTO) 1.9 X10'3 (1.1-4.8); LYMPHOCYTES % (AUTO) 41.5 % (21-51); MEAN CORPUSCULAR HEMOGLOBIN 36.3 PG (27.0-31.0); MEAN CORPUSCULAR HGB CONC 34.2 g/dL (33.0-36.5); MEAN PLATELET VOLUME 9.5 FL (7.4-10.4); MONOCYTES # (AUTO) 0.6 X10'3 (0-0.9); MONOCYTES % (AUTO) 13.3 % (2-12); NEUTROPHILS # (AUTO) 1.8 X10'3 (1.8-7.7); NEUTROPHILS % (AUTO) 39.9 % (42-75); PLATELET COUNT 75 X10'3 (140-440); RED BLOOD COUNT 3.49 X10'6 (4.20-5.60); RED CELL DISTRIBUTION WIDTH 18.5 % (11.5-14.5); WHITE BLOOD COUNT 4.5 X10'3 (4.5-11.0)
[2022-05-09 06:56] LABS: ALANINE AMINOTRANSFERASE 65 U/L (12-78); ALBUMIN 1.9 G/DL (3.4-5.0); ALBUMIN/GLOBULIN RATIO 0.4 (1.1-1.5); ALKALINE PHOSPHATASE 185 IU/L (46-116); ANION GAP 6 (8-16); ASPARTATE AMINO TRANSFERASE 68 U/L (10-37); BLOOD UREA NITROGEN 11 MG/DL (7-18); BUN/CREATININE RATIO 15.5 (6.6-38.0); CALCIUM 7.7 MG/DL (8.5-10.1); CHLORIDE 103 MMOL/L (99-107); CREATININE 0.71 MG/DL (0.40-0.90); GLUCOSE 156 MG/DL (70-104); MAGNESIUM 1.6 MG/DL (1.5-2.4); PHOSPHORUS 2.9 MG/DL (2.3-4.5); SODIUM 136 MMOL/L (135-145); TOTAL CARBON DIOXIDE 27.5 MMOL/L (24-32); TOTAL PROTEIN 7.3 G/DL (6.4-8.2); eGFR 80 ML/MIN
--- NOTE | 2022-05-09 07:08 | NUR ---
3009 Yee Delarosa has a critical value k+ of 3.0 will replace per protocol. MANUEL Thank you Anel [phone]
[2022-05-09 07:11] VITALS: BP 126/63
[2022-05-09] MEDS: pantoprazole 40mg Tablet.DR PO SCH (07:30)
[2022-05-09] MEDS: thiamine 100mg tablet PO SCH (08:00)
[2022-05-09] MEDS: docusate sod 100mg capsule PO SCH ×2 (08:00→19:49)
[2022-05-09] MEDS: RIFAXIMIN 200 MG PO SCH ×3 (08:00→19:02)
[2022-05-09] MEDS: mometasone furoate 0.1% ointment 15g TP SCH (08:00)
[2022-05-09] MEDS: duloxetine 30mg CAPSULE.DR PO SCH (08:00)
[2022-05-09] MEDS: gabapentin 300mg capsule PO SCH ×4 (08:00→20:53)
[2022-05-09] MEDS: furosemide 20 MG/2 ML vial IV SCH (08:00)
[2022-05-09] MEDS: ferrous sulfate 325mg tablet PO SCH ×3 (08:00→20:51)
[2022-05-09] MEDS: K and/or MAG REPLACEMENT MC SCH ×2 (08:00→20:00)
[2022-05-09] MEDS: CefTRIAXone 2gm/D5W 50ml BAG 50 ML IV SCH (08:59)
[2022-05-09] MEDS: HYDROcodone/acetaminophen 10/325mg tab PO PRN (09:00)
[2022-05-09] MEDS: potassium Cl 20 mEq SR tablet PO PRN ×2 (09:01→20:52)
[2022-05-09] MEDS: ESCITALOPRAM OXALATE 5 MG TABLET PO SCH (09:02)
[2022-05-09] MEDS: memantine 5mg tablet PO SCH ×2 (09:03→19:50)
[2022-05-09] MEDS: furosemide 40mg tablet PO SCH (09:03)
[2022-05-09] MEDS: atorvastatin 10mg tablet PO SCH (09:04)
[2022-05-09] MEDS: lisinopril 10 MG tablet PO SCH (09:05)
[2022-05-09] MEDS: levoTHYROXINE 175mcg tablet PO SCH (09:06)
[2022-05-09 11:00] VITALS: BP 127/71
[2022-05-09 15:00] VITALS: BP 118/79
--- NOTE | 2022-05-09 15:31 | NUR ---
Blood glucose was taken after lunch and was 201 not covering because I didn't get glucose before meal and patient has not vishnu any other time
--- NOTE | 2022-05-09 16:25 | NUR ---
Vanco trough was 15.7 I called pharmacy to see if I should continue with vanco admin or stop and the [facility] said to continue vanco admin.
[2022-05-09 18:00] VITALS: BP 103/55
--- NOTE | 2022-05-09 18:30 | NUR ---
Patient in room PCU 3009. I have received report from AMRITA and had the opportunity to ask questions and assume patient care.
[2022-05-09 22:00] VITALS: BP 108/66
[2022-05-10 02:00] VITALS: BP 109/63
[2022-05-10] MEDS: lactulose 20gm/30ml cup PO SCH ×5 (02:03→20:00)
--- NOTE | 2022-05-10 02:57 | NUR ---
reviewed initial assessment of patient agree with assessment.
--- NOTE | 2022-05-10 03:34 | NUR ---
reviewed patient assessment in agreement with assessment.
[2022-05-10] MEDS: vancomycin/NS 1 GM ADD-VANTAGE 250 ML IV SCH (03:49)
[2022-05-10] MEDS: normal saline 1000ml 1,000 ML IV SCH ×2 (03:50→14:24)
[2022-05-10 06:00] VITALS: BP_SYST 111; BP_SYST 112; BP_DIAS 59; BP_DIAS 64
--- NOTE | 2022-05-10 06:19 | NUR ---
Problems reprioritized. Patient report given, questions answered & plan of care reviewed with AMRITA.
[2022-05-10] MEDS: K and/or MAG REPLACEMENT MC SCH ×2 (08:00→20:00)
[2022-05-10] MEDS: RIFAXIMIN 200 MG PO SCH ×3 (08:00→21:34)
[2022-05-10] MEDS: mometasone furoate 0.1% ointment 15g TP SCH (08:00)
--- NOTE | 2022-05-10 10:11 | NUR ---
Gave report to Keli
[2022-05-10] MEDS: ESCITALOPRAM OXALATE 5 MG TABLET PO SCH (10:35)
[2022-05-10] MEDS: atorvastatin 10mg tablet PO SCH (10:35)
[2022-05-10] MEDS: levoTHYROXINE 175mcg tablet PO SCH (10:35)
[2022-05-10] MEDS: ferrous sulfate 325mg tablet PO SCH ×3 (10:36→21:34)
[2022-05-10] MEDS: furosemide 40mg tablet PO SCH (10:36)
[2022-05-10] MEDS: thiamine 100mg tablet PO SCH (10:36)
[2022-05-10] MEDS: gabapentin 300mg capsule PO SCH ×4 (10:36→21:34)
[2022-05-10] MEDS: pantoprazole 40mg Tablet.DR PO SCH (10:36)
[2022-05-10] MEDS: docusate sod 100mg capsule PO SCH ×2 (10:36→20:00)
[2022-05-10] MEDS: duloxetine 30mg CAPSULE.DR PO SCH (10:37)
[2022-05-10] MEDS: HYDROcodone/acetaminophen 10/325mg tab PO PRN (10:38)
[2022-05-10] MEDS: CefTRIAXone 2gm/D5W 50ml BAG 50 ML IV SCH (10:38)
[2022-05-10] MEDS: memantine 5mg tablet PO SCH ×2 (10:38→21:31)
[2022-05-10] MEDS: lisinopril 10 MG tablet PO SCH (10:45)
[2022-05-10 11:05] LABS: BASOPHILS # (AUTO) 0.1 X10'3 (0-0.2); BASOPHILS % (AUTO) 1.4 % (0-1); EOSINOPHILS # (AUTO) 0.4 X10'3 (0-0.9); EOSINOPHILS % (AUTO) 8.3 % (0-6); HEMATOCRIT 37.8 % (35.0-45.0); HEMOGLOBIN 12.9 g/dl (12.0-16.0); LYMPHOCYTES # (AUTO) 1.9 X10'3 (1.1-4.8); MEAN CORPUSCULAR HEMOGLOBIN 36.4 PG (27.0-31.0); MEAN CORPUSCULAR HGB CONC 34.1 g/dL (33.0-36.5); MEAN CORPUSCULAR VOLUME 106.8 FL (78-98); MEAN PLATELET VOLUME 9.6 FL (7.4-10.4); MONOCYTES # (AUTO) 0.5 X10'3 (0-0.9); MONOCYTES % (AUTO) 12.4 % (2-12); NEUTROPHILS # (AUTO) 1.4 X10'3 (1.8-7.7); NEUTROPHILS % (AUTO) 33.9 % (42-75); PLATELET COUNT 77 X10'3 (140-440); RED BLOOD COUNT 3.54 X10'6 (4.20-5.60); RED CELL DISTRIBUTION WIDTH 18.2 % (11.5-14.5); WHITE BLOOD COUNT 4.2 X10'3 (4.5-11.0)
[2022-05-10 11:18] LABS: ALANINE AMINOTRANSFERASE 70 U/L (12-78); ALBUMIN 1.8 G/DL (3.4-5.0); ALBUMIN/GLOBULIN RATIO 0.4 (1.1-1.5); ALKALINE PHOSPHATASE 185 IU/L (46-116); ANION GAP 5 (8-16); ASPARTATE AMINO TRANSFERASE 67 U/L (10-37); BILIRUBIN,TOTAL 2.4 MG/DL (0.1-1.0); BLOOD UREA NITROGEN 8 MG/DL (7-18); BUN/CREATININE RATIO 11.4 (6.6-38.0); CALCIUM 7.6 MG/DL (8.5-10.1); CHLORIDE 105 MMOL/L (99-107); GLUCOSE 157 MG/DL (70-104); MAGNESIUM 1.6 MG/DL (1.5-2.4); PHOSPHORUS 2.6 MG/DL (2.3-4.5); POTASSIUM 3.6 MMOL/L (3.5-5.1); SODIUM 136 MMOL/L (135-145); TOTAL CARBON DIOXIDE 25.8 MMOL/L (24-32); TOTAL PROTEIN 6.9 G/DL (6.4-8.2); eGFR 82 ML/MIN
[2022-05-10] MEDS: morphine 2 MG/ML inj. syringe IV PRN (14:57)
[2022-05-10] MEDS ORDERED: albuterol 2.5 MG/3 ML nebule NEB PRN (14:57)
[2022-05-10 15:00] VITALS: BP 108/74
--- NOTE | 2022-05-10 16:50 | NUR ---
Received report from osorio MARK 7030 . Patient appears stable. Seen by Dr Mccrary. Ammonia level now 65. lactulose increased to q4hrly. BM x1 . Repositioned q2hrly. will continue to monitor
--- NOTE | 2022-05-10 18:52 | NUR ---
Problems reprioritized. Patient report given, questions answered & plan of care reviewed with ashley MARK.
[2022-05-10 19:00] VITALS: BP 117/73
[2022-05-10] MEDS: rifaximin 550mg tablet PO SCH (20:00)
[2022-05-10 22:00] VITALS: BP 112/58
[2022-05-11] MEDS: lactulose 20gm/30ml cup PO SCH ×6 (00:59→22:12)
[2022-05-11 02:00] VITALS: BP 114/72
[2022-05-11] MEDS: normal saline 1000ml 1,000 ML IV SCH (03:51)
[2022-05-11 06:00] VITALS: BP 106/56
--- NOTE | 2022-05-11 06:38 | NUR ---
Patient in room PCU 3009. I have received report from sukhjinder MARK and had the opportunity to ask questions and assume patient care.
[2022-05-11 07:19] LABS: EOSINOPHILS # (AUTO) 0.3 X10'3 (0-0.9); EOSINOPHILS % (AUTO) 7.6 % (0-6); HEMATOCRIT 36.6 % (35.0-45.0); HEMOGLOBIN 12.5 g/dl (12.0-16.0); LYMPHOCYTES # (AUTO) 1.6 X10'3 (1.1-4.8); LYMPHOCYTES % (AUTO) 37.7 % (21-51); MEAN CORPUSCULAR HEMOGLOBIN 36.3 PG (27.0-31.0); MEAN CORPUSCULAR HGB CONC 34.3 g/dL (33.0-36.5); MEAN CORPUSCULAR VOLUME 105.8 FL (78-98); MEAN PLATELET VOLUME 9.7 FL (7.4-10.4); MONOCYTES # (AUTO) 0.6 X10'3 (0-0.9); MONOCYTES % (AUTO) 15.5 % (2-12); NEUTROPHILS # (AUTO) 1.6 X10'3 (1.8-7.7); NEUTROPHILS % (AUTO) 38.2 % (42-75); PLATELET COUNT 85 X10'3 (140-440); RED BLOOD COUNT 3.46 X10'6 (4.20-5.60); RED CELL DISTRIBUTION WIDTH 17.9 % (11.5-14.5); WHITE BLOOD COUNT 4.1 X10'3 (4.5-11.0)
[2022-05-11] MEDS: CefTRIAXone 2gm/D5W 50ml BAG 50 ML IV SCH (07:55)
[2022-05-11] MEDS: rifaximin 550mg tablet PO SCH ×2 (07:55→22:14)
[2022-05-11] MEDS: ESCITALOPRAM OXALATE 5 MG TABLET PO SCH (07:56)
[2022-05-11 07:57] LABS: ALANINE AMINOTRANSFERASE 76 U/L (12-78); ALBUMIN/GLOBULIN RATIO 0.4 (1.1-1.5); ALKALINE PHOSPHATASE 196 IU/L (46-116); ANION GAP 8 (8-16); ASPARTATE AMINO TRANSFERASE 64 U/L (10-37); BILIRUBIN,TOTAL 2.4 MG/DL (0.1-1.0); BLOOD UREA NITROGEN 6 MG/DL (7-18); BUN/CREATININE RATIO 7.9 (6.6-38.0); CALCIUM 7.6 MG/DL (8.5-10.1); CHLORIDE 102 MMOL/L (99-107); CREATININE 0.76 MG/DL (0.40-0.90); GLUCOSE 163 MG/DL (70-104); MAGNESIUM 1.5 MG/DL (1.5-2.4); PHOSPHORUS 3.1 MG/DL (2.3-4.5); POTASSIUM 3.6 MMOL/L (3.5-5.1); SODIUM 136 MMOL/L (135-145); TOTAL CARBON DIOXIDE 26.3 MMOL/L (24-32); TOTAL PROTEIN 7.2 G/DL (6.4-8.2); eGFR 74 ML/MIN
[2022-05-11] MEDS: K and/or MAG REPLACEMENT MC SCH ×2 (08:00→20:00)
[2022-05-11] MEDS: atorvastatin 10mg tablet PO SCH (08:01)
[2022-05-11] MEDS: memantine 5mg tablet PO SCH ×2 (08:01→22:13)
[2022-05-11] MEDS: pantoprazole 40mg Tablet.DR PO SCH (08:04)
[2022-05-11] MEDS: ferrous sulfate 325mg tablet PO SCH ×3 (08:05→22:13)
[2022-05-11] MEDS: duloxetine 30mg CAPSULE.DR PO SCH (08:05)
[2022-05-11] MEDS: levoTHYROXINE 175mcg tablet PO SCH (08:05)
[2022-05-11] MEDS: HYDROcodone/acetaminophen 10/325mg tab PO PRN ×2 (08:05→22:14)
[2022-05-11] MEDS: furosemide 40mg tablet PO SCH (08:06)
[2022-05-11] MEDS: lisinopril 10 MG tablet PO SCH (08:06)
[2022-05-11] MEDS: gabapentin 300mg capsule PO SCH ×4 (08:06→22:15)
[2022-05-11] MEDS: thiamine 100mg tablet PO SCH (08:15)
[2022-05-11] MEDS: docusate sod 100mg capsule PO SCH ×2 (08:15→20:00)
--- NOTE | 2022-05-11 08:46 | NUR ---
Initial: Pt admitted w/ advanced hepatocellular carcinoma with advanced underlying liver cirrhosis, encephalopathy, and UTI per EMR. Currently on EC7/Carb control diet per [employer]/MD recs w/ low PO intake, avg 41% of meals not meeting needs. Recommend liberalizing to Regular diet given A1c only 6 and poor PO intake. Also recommend Ensure Enlive BID to assist w/ meeting needs. Pt documented to be receiving max assistance w/ meals. LBM 715 receiving routine colace and lactulose r/t elevated ammonia. Will continue to monitor. Recs; 1. Liberalize to EC7/Regular diet, A1c 6 2. Ensure Enlive BIDBD: pending MD verification 3. Bowel care per rx 4. Weekly wts Addendum: 05/11/22 at [address] Amended: Links added.
[2022-05-11 09:18] LABS: PLATELET ESTIMATE DECREASED
[2022-05-11 09:19] LABS: ANISOCYTOSIS 1+; POLYCHROMASIA FEW; ROULEAUX 1+; TARGET CELLS FEW
[2022-05-11] MEDS: linezolid 600mg/300ml PREMIX 300 ML IV SCH ×2 (12:31→22:10)
[2022-05-11] MEDS: mometasone furoate 0.1% ointment 15g TP SCH (12:32)
[2022-05-11 15:00] VITALS: BP 113/71
--- NOTE | 2022-05-11 17:12 | NUR ---
All cares given loose stool x2. patient is on lactulose for ammonia levels. Medicated for pain x1. sacrum pictured and optifoam applied see picture . will continue to monitor
[2022-05-11 18:00] VITALS: BP 122/72
--- NOTE | 2022-05-11 18:20 | NUR ---
Patient in room U 3009. I have received report from DEEDEE VANEGAS and had the opportunity to ask questions and assume patient care. Addendum: 05/11/22 at 1930 by Rochelle Valle RN Amended: Links added.
--- NOTE | 2022-05-11 18:53 | NUR ---
Problems reprioritized. Patient report given, questions answered & plan of care reviewed with kendrick MARK.
[2022-05-11 22:00] VITALS: BP 109/56
--- NOTE | 2022-05-11 22:00 | NUR ---
took meds inc of stool and has care done. pt mentation a little clearer than it was eariler
--- NOTE | 2022-05-12 | NUR ---
inc large amt of stool skin care done and positioned to comfort.
[2022-05-12] MEDS: lactulose 20gm/30ml cup PO SCH ×6 (00:10→23:26)
[2022-05-12 02:00] VITALS: BP 107/65
--- NOTE | 2022-05-12 02:30 | NUR ---
inc of stool skin care done and positioned to comfort.
[2022-05-12] MEDS: normal saline 1000ml 1,000 ML IV SCH (05:01)
[2022-05-12 06:00] VITALS: BP 111/61
--- NOTE | 2022-05-12 06:34 | NUR ---
Problems reprioritized. Patient report given, questions answered & plan of care reviewed with DEEDEE DENT. Addendum: 05/12/22 at 0634 by Rochelle Valle RN Amended: Links added.
[2022-05-12] MEDS: CefTRIAXone 2gm/D5W 50ml BAG 50 ML IV SCH (07:37)
[2022-05-12] MEDS: linezolid 600mg/300ml PREMIX 300 ML IV SCH ×2 (07:37→20:50)
[2022-05-12] MEDS: rifaximin 550mg tablet PO SCH ×2 (07:37→23:26)
[2022-05-12] MEDS: thiamine 100mg tablet PO SCH (07:37)
[2022-05-12] MEDS: levoTHYROXINE 175mcg tablet PO SCH (07:37)
[2022-05-12] MEDS: ferrous sulfate 325mg tablet PO SCH ×3 (07:37→23:26)
[2022-05-12] MEDS: ESCITALOPRAM OXALATE 5 MG TABLET PO SCH (07:37)
[2022-05-12] MEDS: docusate sod 100mg capsule PO SCH (07:37)
[2022-05-12] MEDS: memantine 5mg tablet PO SCH (07:37)
[2022-05-12] MEDS: duloxetine 30mg CAPSULE.DR PO SCH (07:37)
[2022-05-12] MEDS: gabapentin 300mg capsule PO SCH (07:38)
[2022-05-12] MEDS: atorvastatin 10mg tablet PO SCH (07:38)
[2022-05-12] MEDS: furosemide 40mg tablet PO SCH (07:38)
[2022-05-12] MEDS: pantoprazole 40mg Tablet.DR PO SCH (07:38)
[2022-05-12] MEDS: lisinopril 10 MG tablet PO SCH (07:38)
[2022-05-12] MEDS: mometasone furoate 0.1% ointment 15g TP SCH (07:39)
[2022-05-12 07:47] LABS: MAGNESIUM 1.5 MG/DL (1.5-2.4); PHOSPHORUS 2.9 MG/DL (2.3-4.5)
[2022-05-12] MEDS: K and/or MAG REPLACEMENT MC SCH ×3 (08:00→20:45)
--- NOTE | 2022-05-12 09:29 | NUR ---
Zyvox Consult: Pt started on zyvox though remains obtunded per EMR and RN this AM. JOHAN d/w RN cancelling carb controlled diet restriction given A1C 6.0% and fluctuating PO intake hx. JOHAN notified RN of prior ONS recs pending MD verification in EMR. Pt not appropriate for low-tyramine diet ed at this time. Addendum: 05/12/22 at [address] Amended: Links added.
[2022-05-12 11:00] LABS: BASOPHILS % (AUTO) 0.8 % (0-1); EOSINOPHILS # (AUTO) 0.4 X10'3 (0-0.9); EOSINOPHILS % (AUTO) 7.6 % (0-6); HEMATOCRIT 36.7 % (35.0-45.0); HEMOGLOBIN 12.6 g/dl (12.0-16.0); LYMPHOCYTES # (AUTO) 1.8 X10'3 (1.1-4.8); LYMPHOCYTES % (AUTO) 37.1 % (21-51); MEAN CORPUSCULAR HEMOGLOBIN 36.7 PG (27.0-31.0); MEAN CORPUSCULAR HGB CONC 34.4 g/dL (33.0-36.5); MEAN CORPUSCULAR VOLUME 106.8 FL (78-98); MEAN PLATELET VOLUME 9.4 FL (7.4-10.4); MONOCYTES # (AUTO) 0.7 X10'3 (0-0.9); MONOCYTES % (AUTO) 14.8 % (2-12); NEUTROPHILS # (AUTO) 1.9 X10'3 (1.8-7.7); NEUTROPHILS % (AUTO) 39.7 % (42-75); RED BLOOD COUNT 3.44 X10'6 (4.20-5.60); WHITE BLOOD COUNT 4.7 X10'3 (4.5-11.0)
[2022-05-12 11:03] LABS: PLATELET COUNT 75 X10'3 (140-440)
[2022-05-12 11:16] LABS: ALANINE AMINOTRANSFERASE 71 U/L (12-78); ALBUMIN 1.8 G/DL (3.4-5.0); ALBUMIN/GLOBULIN RATIO 0.4 (1.1-1.5); ALKALINE PHOSPHATASE 175 IU/L (46-116); ANION GAP 4 (8-16); ASPARTATE AMINO TRANSFERASE 49 U/L (10-37); BILIRUBIN,TOTAL 2.1 MG/DL (0.1-1.0); BLOOD UREA NITROGEN 5 MG/DL (7-18); BUN/CREATININE RATIO 7.1 (6.6-38.0); CALCIUM 7.5 MG/DL (8.5-10.1); CHLORIDE 102 MMOL/L (99-107); GLUCOSE 195 MG/DL (70-104); SODIUM 137 MMOL/L (135-145); TOTAL CARBON DIOXIDE 30.6 MMOL/L (24-32); TOTAL PROTEIN 6.7 G/DL (6.4-8.2); eGFR 82 ML/MIN
[2022-05-12] MEDS ORDERED: magnesium 4gm in 100ml NS 100 ML IV PRN (11:40)
[2022-05-12] MEDS ORDERED: magnesium Cl slow-release 64mg tablet PO PRN (11:40)
[2022-05-12] MEDS ORDERED: magnesium 2GM in 50ml NS 50 ML IV PRN (11:40)
[2022-05-12] MEDS ORDERED: POTASSIUM BICARB 20meq eff tab 20 MEQ TABLET.EFF PO PRN (11:40)
[2022-05-12] MEDS: POTASSIUM BICARB 20meq eff tab 20 MEQ TABLET.EFF PO PRN ×3 (11:56→23:27)
[2022-05-12 15:00] VITALS: BP 125/69
[2022-05-12 18:00] VITALS: BP 118/67
--- NOTE | 2022-05-12 19:00 | NUR ---
Patient in room U 3009. I have received report from DEEDEE PEACOCK and had the opportunity to ask questions and assume patient care. Addendum: 05/12/22 at 1900 by Rochelle Valle RN Amended: Links added.
--- NOTE | 2022-05-12 21:00 | NUR ---
pt drowsy held off giving meds due to this. blood sugar done and noted blood sugar 172. pt only has regular insulin ordered. pt not covered earlier pt not eating well is a feeder barely took bites food earlier. under night time coverage there is no coverage for this blood sugar per protocol and no long acting insulin ordered.
[2022-05-12 22:00] VITALS: BP 103/60
--- NOTE | 2022-05-12 23:00 | NUR ---
Dr Nix aware of pt status and blood sugars and that she is not eating well. aware of pt sensitivity to insulin and health status and that night time scale does not require coverage so do not cover tonight.
--- NOTE | 2022-05-12 23:44 | NUR ---
PT AWAOKE ENOUGH TO TAKE PILLS CRUSHED WITH POTASSIUM REPLACEMENT. INC OF STOOL AND SKIN CARE DONE CHANGED AND GRANDE CARE DONE.
[2022-05-13 02:00] VITALS: BP 119/56
[2022-05-13] MEDS: normal saline 1000ml 1,000 ML IV SCH ×2 (02:24→22:52)
[2022-05-13 06:00] VITALS: BP 136/58
--- NOTE | 2022-05-13 06:25 | NUR ---
Problems reprioritized. Patient report given, questions answered & plan of care reviewed with DEEDEE PEACOCK. Addendum: 05/13/22 at 0626 by Rochelle Valle RN Amended: Links added.
[2022-05-13 07:13] LABS: MAGNESIUM 1.3 MG/DL (1.5-2.4); POTASSIUM 3.6 MMOL/L (3.5-5.1)
[2022-05-13] MEDS: HYDROcodone/acetaminophen 10/325mg tab PO PRN ×2 (07:47→14:26)
[2022-05-13] MEDS: ferrous sulfate 325mg tablet PO SCH ×3 (07:47→20:27)
[2022-05-13] MEDS: lactulose 20gm/30ml cup PO SCH ×2 (07:48→16:26)
[2022-05-13] MEDS: pantoprazole 40mg Tablet.DR PO SCH (07:48)
[2022-05-13] MEDS: ESCITALOPRAM OXALATE 5 MG TABLET PO SCH (07:48)
[2022-05-13] MEDS: levoTHYROXINE 175mcg tablet PO SCH (07:48)
[2022-05-13] MEDS: furosemide 40mg tablet PO SCH (07:48)
[2022-05-13] MEDS: lisinopril 10 MG tablet PO SCH (07:48)
[2022-05-13] MEDS: mometasone furoate 0.1% ointment 15g TP SCH (07:49)
[2022-05-13] MEDS: thiamine 100mg tablet PO SCH (07:49)
[2022-05-13] MEDS: K and/or MAG REPLACEMENT MC SCH ×4 (07:49→20:27)
[2022-05-13] MEDS: rifaximin 550mg tablet PO SCH ×2 (07:56→20:27)
[2022-05-13] MEDS: linezolid 600mg/300ml PREMIX 300 ML IV SCH ×2 (07:56→20:27)
[2022-05-13] MEDS: CefTRIAXone 2gm/D5W 50ml BAG 50 ML IV SCH (07:56)
[2022-05-13 09:05] LABS: ALANINE AMINOTRANSFERASE 75 U/L (12-78); ALBUMIN 1.9 G/DL (3.4-5.0); ALBUMIN/GLOBULIN RATIO 0.4 (1.1-1.5); ALKALINE PHOSPHATASE 198 IU/L (46-116); ANION GAP 9 (8-16); ASPARTATE AMINO TRANSFERASE 56 U/L (10-37); BILIRUBIN,TOTAL 2.2 MG/DL (0.1-1.0); BLOOD UREA NITROGEN 4 MG/DL (7-18); BUN/CREATININE RATIO 6.5 (6.6-38.0); CALCIUM 7.6 MG/DL (8.5-10.1); CHLORIDE 101 MMOL/L (99-107); CREATININE 0.62 MG/DL (0.40-0.90); GLUCOSE 169 MG/DL (70-104); SODIUM 139 MMOL/L (135-145); TOTAL CARBON DIOXIDE 29.5 MMOL/L (24-32); eGFR > 90 ML/MIN
[2022-05-13 09:23] LABS: CLARITY,URINE SLIGHTLY CLOUDY (Clear); COLOR,URINE YELLOW (Yellow); GLUCOSE, URINE NEGATIVE (Neg); KETONES,URINE NEGATIVE (Neg); LEUKOCYTE ESTERASE ,URINE NEGATIVE (Neg); OCCULT BLOOD,URINE TRACE-INTACT (Neg); PROTEIN,URINE NEGATIVE (Neg); UROBILINOGEN,URINE 0.2 E.U/dL (0.2-1.0)
[2022-05-13 09:25] LABS: UA COLLECTION TYPE NON-SPECIFIED
[2022-05-13 09:26] LABS: NITRITES, URINE NEGATIVE (Neg)
[2022-05-13 09:28] LABS: SQUAMOUS EPITHELIAL CELL,UR FEW /LPF (FEW)
[2022-05-13 09:29] LABS: BACTERIA,URINE FEW /HPF (Neg); RBC,URINE 0-2 /HPF (0-2); WBC,URINE 0-4 /HPF (0-4); YEAST FEW /HPF (NEGATIVE)
[2022-05-13 10:07] LABS: BASOPHILS % (AUTO) 0.7 % (0-1); EOSINOPHILS # (AUTO) 0.2 X10'3 (0-0.9); EOSINOPHILS % (AUTO) 4.6 % (0-6); HEMATOCRIT 39.2 % (35.0-45.0); HEMOGLOBIN 13.3 g/dl (12.0-16.0); LYMPHOCYTES % (AUTO) 41.4 % (21-51); MEAN CORPUSCULAR HEMOGLOBIN 36.5 PG (27.0-31.0); MEAN CORPUSCULAR VOLUME 107.2 FL (78-98); MEAN PLATELET VOLUME 9.5 FL (7.4-10.4); MONOCYTES # (AUTO) 0.7 X10'3 (0-0.9); MONOCYTES % (AUTO) 14.3 % (2-12); NEUTROPHILS # (AUTO) 1.9 X10'3 (1.8-7.7); PLATELET COUNT 66 X10'3 (140-440); RED BLOOD COUNT 3.66 X10'6 (4.20-5.60); RED CELL DISTRIBUTION WIDTH 17.7 % (11.5-14.5); WHITE BLOOD COUNT 4.8 X10'3 (4.5-11.0)
[2022-05-13 11:00] VITALS: BP 124/79
[2022-05-13] MEDS: insulin Lispro (HumaLOG) vial - multi-dose SQ SCH (14:42)
[2022-05-13 15:00] VITALS: BP 116/60
[2022-05-13 18:00] VITALS: BP 118/62
[2022-05-13] MEDS: morphine 2 MG/ML inj. syringe IV PRN (20:06)
[2022-05-13 22:00] VITALS: BP 94/51
[2022-05-14 02:00] VITALS: BP 95/51
[2022-05-14] MEDS: HYDROcodone/acetaminophen 10/325mg tab PO PRN (05:30)
[2022-05-14 06:00] VITALS: BP 123/62
[2022-05-14 06:28] LABS: MAGNESIUM 1.2 MG/DL (1.5-2.4); POTASSIUM 3.3 MMOL/L (3.5-5.1)
--- NOTE | 2022-05-14 06:42 | NUR ---
Patient in room PCU 3009. I have received report from DEEDEE Zaragoza and had the opportunity to ask questions and assume patient care.
[2022-05-14] MEDS: pantoprazole 40mg Tablet.DR PO SCH (07:30)
[2022-05-14] MEDS: furosemide 40mg tablet PO SCH (08:00)
[2022-05-14] MEDS: levoTHYROXINE 175mcg tablet PO SCH (08:00)
[2022-05-14] MEDS: rifaximin 550mg tablet PO SCH (08:00)
[2022-05-14] MEDS: ESCITALOPRAM OXALATE 5 MG TABLET PO SCH (08:00)
[2022-05-14] MEDS: K and/or MAG REPLACEMENT MC SCH ×2 (08:00)
[2022-05-14] MEDS: mometasone furoate 0.1% ointment 15g TP SCH (08:00)
[2022-05-14] MEDS: thiamine 100mg tablet PO SCH (08:00)
[2022-05-14] MEDS: lactulose 20gm/30ml cup PO SCH ×3 (08:00→16:00)
[2022-05-14] MEDS: ferrous sulfate 325mg tablet PO SCH ×2 (08:00→13:00)
[2022-05-14] MEDS: lisinopril 10 MG tablet PO SCH (08:00)
[2022-05-14] MEDS: CefTRIAXone 2gm/D5W 50ml BAG 50 ML IV SCH (08:47)
[2022-05-14] MEDS: insulin Lispro (HumaLOG) vial - multi-dose SQ SCH ×2 (08:52→13:42)
[2022-05-14 09:36] LABS: BASOPHILS % (AUTO) 0.8 % (0-1); EOSINOPHILS # (AUTO) 0.2 X10'3 (0-0.9); EOSINOPHILS % (AUTO) 3.9 % (0-6); HEMATOCRIT 37.5 % (35.0-45.0); HEMOGLOBIN 13.1 g/dl (12.0-16.0); LYMPHOCYTES # (AUTO) 2.5 X10'3 (1.1-4.8); LYMPHOCYTES % (AUTO) 46.9 % (21-51); MEAN CORPUSCULAR HEMOGLOBIN 36.3 PG (27.0-31.0); MEAN CORPUSCULAR HGB CONC 34.8 g/dL (33.0-36.5); MEAN CORPUSCULAR VOLUME 104.2 FL (78-98); MEAN PLATELET VOLUME 9.7 FL (7.4-10.4); MONOCYTES # (AUTO) 0.8 X10'3 (0-0.9); MONOCYTES % (AUTO) 14.5 % (2-12); NEUTROPHILS # (AUTO) 1.8 X10'3 (1.8-7.7); NEUTROPHILS % (AUTO) 33.9 % (42-75); PLATELET COUNT 88 X10'3 (140-440); RED CELL DISTRIBUTION WIDTH 17.3 % (11.5-14.5); WHITE BLOOD COUNT 5.3 X10'3 (4.5-11.0)
[2022-05-14 09:51] LABS: ALANINE AMINOTRANSFERASE 76 U/L (12-78); ALBUMIN 1.9 G/DL (3.4-5.0); ALBUMIN/GLOBULIN RATIO 0.4 (1.1-1.5); ALKALINE PHOSPHATASE 186 IU/L (46-116); ANION GAP 7 (8-16); ASPARTATE AMINO TRANSFERASE 56 U/L (10-37); BILIRUBIN,TOTAL 2.5 MG/DL (0.1-1.0); BLOOD UREA NITROGEN 5 MG/DL (7-18); BUN/CREATININE RATIO 7.4 (6.6-38.0); CALCIUM 7.6 MG/DL (8.5-10.1); CHLORIDE 100 MMOL/L (99-107); CREATININE 0.68 MG/DL (0.40-0.90); GLUCOSE 147 MG/DL (70-104); POTASSIUM 3.3 MMOL/L (3.5-5.1); SODIUM 137 MMOL/L (135-145); TOTAL CARBON DIOXIDE 30.5 MMOL/L (24-32); eGFR 85 ML/MIN
[2022-05-14] MEDS: linezolid 600mg/300ml PREMIX 300 ML IV SCH (09:54)
[2022-05-14 11:00] VITALS: BP 111/48
[2022-05-14] MEDS: potassium CL 10mEq/100ml bag 100 ML IV PRN ×2 (12:14→13:39)
[2022-05-14 15:00] VITALS: BP 116/50
[2022-05-14] MEDS ORDERED: DULO60CA65 PO (15:36)
[2022-05-14] MEDS ORDERED: GABA600T13 PO (15:36)
[2022-05-14] MEDS ORDERED: LACT10SO3 PO (15:36)
[2022-05-14] MEDS ORDERED: RIFA550T PO (15:36)
--- NOTE | 2022-05-14 17:15 | NUR ---
pt discharged to home with all belongings, by Arianna Cargo, via gurney. Discharge instructions and medications provided to pt in paperwork. New prescription called to [facility] on [address] IV DC'd, cannula intact. Tele monitor removed.
== END 2022-05-14 17:58 | disposition hospice, home (50) | DRG 441 ==
LOC: ER 11:47 → ED HOLD 21:31 → EDBEDREQ 21:35 → PCU 3S 23:30
PROVIDERS: ADMIT Family Medicine; ATTEND Family Medicine
DX: K72.90 Hepatic failure, unspecified without coma (principal); G93.41 Metabolic encephalopathy; C22.0 Liver cell carcinoma; I50.32 Chronic diastolic (congestive) heart failure; N39.0 Urinary tract infection, site not specified; K80.10 Calculus of gallbladder with chronic cholecystitis without obstruction; Z68.41 Body mass index [BMI] 40.0-44.9, adult; K76.6 Portal hypertension; R78.81 Bacteremia; Z16.21 Resistance to vancomycin; D68.4 Acquired coagulation factor deficiency; K74.60 Unspecified cirrhosis of liver; B96.20 Unspecified Escherichia coli [E. coli] as the cause of diseases classified elsewhere; E87.6 Hypokalemia; B95.2 Enterococcus as the cause of diseases classified elsewhere; B95.7 Other staphylococcus as the cause of diseases classified elsewhere; G89.4 Chronic pain syndrome; E11.65 Type 2 diabetes mellitus with hyperglycemia; Z20.822 Contact with and (suspected) exposure to COVID-19; E66.01 Morbid (severe) obesity due to excess calories; I11.0 Hypertensive heart disease with heart failure; J44.9 Chronic obstructive pulmonary disease, unspecified; F03.90 Unspecified dementia, unspecified severity, without behavioral disturbance, psychotic disturbance, mood disturbance, and anxiety; D69.6 Thrombocytopenia, unspecified; E88.09 Other disorders of plasma-protein metabolism, not elsewhere classified; E03.9 Hypothyroidism, unspecified; R26.9 Unspecified abnormalities of gait and mobility; Z74.01 Bed confinement status; Z79.899 Other long term (current) drug therapy; Z79.4 Long term (current) use of insulin; Z79.890 Hormone replacement therapy
CPT/HCPCS: 36415; 70450; 71045; 80053; 80061; 80202; 80305; 80320; 81001; 82140; 82948; 83036; 83605; 83735; 83880; 84100; 84132; 84145; 84443; 85008; 85025; 85610; 85730; 87040; 87077; 87081; 87088; 87186; 87502; 87503; 87635; 92508; 92616; 93005; 94640; 94760; 97110; 97162; 99285; A4314; A6212; A6213; A6250; A6260; A6449; C9803; G0378; J0692; J0696; J1815; J1940; J2020; J2270; J3370; J3475; J3480; J3490; J7030; J7040